=== PATIENT | male | born 1990 | race Two or more races ===

== ENCOUNTER 2021-04-23 21:56 | Emergency (ER) | payer OTHER ==
[~2021-04-23] VITALS: Ht 167.6 cm; Wt 81.6 kg
[2021-04-23 22:40] VITALS: BP 108/66
[2021-04-23] MEDS ORDERED: ACETAMINOPHEN 500 MG TAB PO ONE (22:45)
[2021-04-24] MEDS ORDERED: DexAMETHasone SOD PHOS 10MG/1ML VIAL INJ IM ONE (01:45)
[2021-04-24] MEDS ORDERED: cefTRIAXone W LIDOCAINE 1 GM IM IM ONE (01:45)
[2021-04-24] MEDS ORDERED: cefTRIAXone SOD 1,000 MG VL IM ONE (02:00)
== END 2021-04-24 02:27 | disposition home or self-care (01) ==
LOC: ER 21:59
DX: U07.1 COVID-19 (principal); J12.82 Pneumonia due to coronavirus disease 2019
CPT/HCPCS: 36415; 71045; 87426; 96372; 99284; J0696; J1100